=== PATIENT | male | born 1945 | race Caucasian/White ===

== ENCOUNTER → 2023-02-21 | Outpatient (CLI) | payer OTHER, SELFPAY ==
--- NOTE | 2023-02-21 12:49 | ECHOD_ITS ---
Reason For Study: HEART DISEASE Procedure This was a 2D Doppler, Color Flow transthoracic echocardiogram. Exam performed in department. Left Ventricle Normal LV size. Left ventricular systolic function is normal. The estimated ejection fraction is 65 %. Stage 1 diastolic dysfunction. No regional wall motion abnormalities noted. Right Ventricle Normal RV size. Normal systolic function. Atria Normal left atrium. Normal right atrium. Mitral Valve Normal mitral valve. Tricuspid Valve Normal tricuspid valve. Mild tricuspid valve insufficiency. Pulmonary artery systolic pressure is 30 mmHg. Aortic Valve Trisinus/trileaflet aortic valve. Pulmonic Valve Normal pulmonic valve. Great Vessels Normal aortic root. The pulmonary artery is normal size. Normal inferior vena cava. Pericardium/Pleural No pericardial effusion. MMode/2D Measurements & Calculations LVIDd: 5.5 cm IVSd: 1.1 cm Ao root diam: 3.8 cm LVIDs: 3.6 cm LVPWd: 1.0 cm FS: 33.8 % LAV(MOD-bp): 77.0 ml LVAd ap4: 33.5 cm2 SV(MOD-sp4): 62.8 ml LAV(MOD-bp) Indexed: 37.0 ml/m2 LVLd ap4: 8.4 cm LAV(MOD-sp2): 70.6 ml EDV(MOD-sp4): 110.2 ml LAV(MOD-sp4): 70.6 ml EDV(sp4-el): 113.1 ml LVAs ap4: 19.0 cm2 LVLs ap4: 6.8 cm ESV(MOD-sp4): 47.4 ml ESV(sp4-el): 45.3 ml EF(MOD-sp4): 57.0 % EF(sp4-el): 60.0 % SV(sp4-el): 67.8 ml LA A4 area: 21.9 cm2 LA dimension(2D): 4.7 cm RA A4 area: 18.9 cm2 Time Measurements MV dec time: 0.23 sec Doppler Measurements & Calculations MV E max baldev: 63.1 cm/sec Lat Peak E' Baldev: 6.3 cm/sec Med Peak E' Baldev: 4.4 cm/sec MV A max baldev: 96.7 cm/sec E/E' lat: 10.0 E/E' med: 14.2 MV E/A: 0.65 MV V2 max: 92.3 cm/sec Ao V2 max: 162.0 cm/sec MV max P.4 mmHg MV dec slope: 276.3 cm/sec2 Ao max P.5 mmHg MV V2 mean: 43.4 cm/sec Ao V2 mean: 105.4 cm/sec MV mean P.94 mmHg Ao mean P.1 mmHg MV V2 VTI: 38.7 cm Ao V2 VTI: 39.7 cm AV (velocity ratio): 0.74 LV V1 max: 119.0 cm/sec PA V2 max: 102.5 cm/sec TR max baldev: 255.3 cm/sec LV V1 max P.7 mmHg PA V2 mean: 65.3 cm/sec TR max P.1 mmHg LV V1 mean P.7 mmHg LV V1 mean: 75.5 cm/sec LV V1 VTI: 29.3 cm ECHO/Echo Complete Interpretation Summary Normal LV size. Left ventricular systolic function is normal. The estimated ejection fraction is 65 %. Stage 1 diastolic dysfunction. Pulmonary artery systolic pressure is 30 mmHg. Ordering Physician: FRANCIS FARRIS Referring Physician: DELFINA PCP Performed By: Sherice Lewis RCS
== END | disposition home or self-care (01) ==
LOC: CVS 12:47
DX: I25.9 Chronic ischemic heart disease, unspecified (principal)
CPT/HCPCS: 93306